=== PATIENT | male | born 1945 | race African-American/Black ===

== ENCOUNTER 2016-04-12 20:50 | Emergency (ER) | payer MEDICARE, MEDICAID ==
[~2016-04-12] VITALS: Ht 180.3 cm; Wt 72.6 kg
[2016-04-12 21:00] VITALS: BP 155/82
[2016-04-12] MEDS ORDERED: ATORVASTATIN CA40 MG ORAL (21:42)
[2016-04-12] MEDS ORDERED: FAMOTIDINE40 MG ORAL (21:42)
[2016-04-12] MEDS ORDERED: ATENOLOL25 MG ORAL (21:43)
[2016-04-12] MEDS ORDERED: DICLOFENAC SODI25 MG ORAL (21:43)
[2016-04-12] MEDS ORDERED: LIDOCAINE700 M1 TP (21:43)
[2016-04-12] MEDS ORDERED: ASPIR 8181 MG ORAL (21:44)
[2016-04-12] MEDS ORDERED: HYDROCHLOROTHIA25 MG ORAL (21:44)
[2016-04-12 22:22] LABS: BASOPHILS % (AUTO) 1.1 % (0.0-2.0); EOSINOPHILS % (AUTO) 3.8 % (0.0-3.0); LYMPHOCYTES % (AUTO) 20.7 % (20.0-45.0); MEAN CORPUSCULAR HEMOGLOBIN 27.8 PG (27.0-31.0); MEAN CORPUSCULAR HGB CONC 31.8 G/DL (32.0-36.0); MEAN CORPUSCULAR VOLUME 87 FL (80-99); MEAN PLATELET VOLUME 11.8 FL (6.5-10.1); MONOCYTES % (AUTO) 9.2 % (1.0-10.0); NEUTROPHILS % (AUTO) 65.2 % (45.0-75.0); PLATELET COUNT 149 K/UL (150-450); RED BLOOD COUNT 4.23 M/UL (4.70-6.10); RED CELL DISTRIBUTION WIDTH 14.1 % (11.6-14.8); WHITE BLOOD COUNT 6.7 K/UL (4.8-10.8)
[2016-04-12 22:28] LABS: INR 1.2 (0.9-1.1); PROTHROMBIN TIME 12.1 SEC (9.30-11.50)
[2016-04-12 22:29] LABS: KETONES,URINE NEGATIVE (NEGATIVE); LEUKOCYTE ESTERASE ,URINE 3+ (NEGATIVE); NITRITE,URINE POSITIVE (NEGATIVE); PH,URINE 6.5 (4.5-8.0); PROTEIN,URINE 3+ (NEGATIVE); UROBILINOGEN,URINE NORMAL MG/DL (0.0-1.0)
[2016-04-12 22:30] VITALS: BP 139/59
[2016-04-12 22:31] LABS: APPEARANCE,URINE CLOUDY
[2016-04-12 22:34] LABS: TROPONIN I < 0.30 ng/mL (<=0.30)
[2016-04-12 22:37] LABS: ALANINE AMINOTRANSFERASE 16 U/L (3-41); ANION GAP 16 (5-15); ASPARTATE AMINO TRANSFERASE 13 U/L (5-40); CALCIUM 9.2 mg/dL (8.6-10.2); CARBON DIOXIDE 24 mEQ/L (20-30); CHLORIDE 97 mEQ/L (98-107); CREATININE 0.8 mg/dL (0.7-1.2); GLOMERULAR FILTRATION RATE > 60 mL/min (>60); HEMOLYSIS 5; LIPASE 14 U/L (< 60); POTASSIUM 3.5 mEQ/L (3.4-4.9); SODIUM 137 mEQ/L (135-145); TOTAL PROTEIN 7.2 g/dL (6.6-8.7)
[2016-04-12 22:38] LABS: AMORPHOUS SEDIMENT,UR MANY /LPF; BACTERIA,URINE MANY /HPF; SQUAMOUS EPITHELIAL CELL,UR OCCASIONAL /LPF (NONE/OCC)
[2016-04-12 22:48] LABS: CKMB 2.1 ng/mL (< 6.7)
[2016-04-12 23:30] VITALS: BP 123/60
[2016-04-12] MEDS ORDERED: Lidocaine 1% MPF 10mg/ml 5ml ONE (23:56)
[2016-04-13] MEDS ORDERED: CIPROFLOXACIN500 M2 ORAL (00:49)
[2016-04-13 01:30] VITALS: BP 126/65
--- NOTE | 2016-04-13 02:53 | Emergency Room Report ---
History of Present Illness General Chief Complaint: Abdominal Pain Source: Patient, EMS Present Illness HPI Patient presents with complaints of malfunctioning of his Mohan catheter Patient is quadriplegic and has a chronic indwelling Mohan catheter Patient has his catheter removed and replaced on a monthly basis However today felt that there was urine coming from around the catheter site the catheter did not appear to be flowing appropriately Patient has some fullness in the suprapubic area denies any fevers denies any chest pain or shortness of breath denies any other abdominal pain And presented for further evaluation Of note the patient had a colonoscopy today as well And has a followup with his urologist on Allergies: Coded Allergies: No Known Allergies (Unverified , 04/12/16) Patient History Past Medical History: see triage record Pertinent Family History: none Reviewed Nursing Documentation: PMH: Agreed, PSxH: Agreed Nursing Documentation-PMH Past Medical History: No History, Except For Hx Cardiac Problems: Yes - AFLUTTER Hx Hypertension: Yes Hx Diabetes: Yes Review of Systems All Other Systems: negative except mentioned in HPI Physical Exam Vital Signs Date Time Temp Pulse Resp B/P Pulse Ox O2 Delivery O2 Flow Rate FiO2 04/12/16 20:50 98.4 106 14 155/82 99 Room Air Sp02 EP Interpretation: reviewed, normal General Appearance: well appearing, no apparent distress Head: normocephalic, atraumatic Eyes: bilateral eye PERRL ENT: hearing grossly normal, normal pharynx Neck: full range of motion, supple Respiratory: lungs clear Cardiovascular #1: regular rate, rhythm Gastrointestinal: non tender, soft Genitourinary: other - Patient has an indwelling catheter, appears to be chronic with erosion of the lower meatus Musculoskeletal: other - Patient is quadriplegic Neurologic: alert, oriented x3, responsive Skin: normal color Medical Decision Making Diagnostic Impression: Primary Impression: Abdominal pain Additional Impressions: uti mohan catheter malfunction ER Course Patient's Mohan catheter was replaced After replacement there was increased urine output in the urinary bag and the patient feels improved Patient's urine shows significant infectious pathology Otherwise CBC and chemistry were at baseline levels I had discussion with [facility] It appears that the patient has had sensitivity to Cipro in the past and therefore this medicine until followup with urology Given the patient's recent colonoscopy as well, x-ray was performed and does not show any obvious free air Labs Test 04/12/16 22:00 White Blood Count 6.7 K/UL (4.8-10.8) Red Blood Count 4.23 M/UL (4.70-6.10) Hemoglobin 11.8 G/DL (14.2-18.0) Hematocrit 37.0 % (42.0-52.0) Mean Corpuscular Volume 87 FL (80-99) Mean Corpuscular Hemoglobin 27.8 PG (27.0-31.0) Mean Corpuscular Hemoglobin Concent 31.8 G/DL (32.0-36.0) Red Cell Distribution Width 14.1 % (11.6-14.8) Platelet Count 149 K/UL (150-450) Mean Platelet Volume 11.8 FL (6.5-10.1) Neutrophils (%) (Auto) 65.2 % (45.0-75.0) Lymphocytes (%) (Auto) 20.7 % (20.0-45.0) Monocytes (%) (Auto) 9.2 % (1.0-10.0) Eosinophils (%) (Auto) 3.8 % (0.0-3.0) Basophils (%) (Auto) 1.1 % (0.0-2.0) Prothrombin Time 12.1 SEC (9.30-11.50) Prothromb Time International Ratio 1.2 (0.9-1.1) Activated Partial Thromboplast Time 37 SEC (23-33) Urine Color Pale yellow Urine Appearance Cloudy Urine pH 6.5 (4.5-8.0) Urine Specific Gibbon 1.010 (1.005-1.035) Urine Protein 3+ (NEGATIVE) Urine Glucose (UA) Negative (NEGATIVE) Urine Ketones Negative (NEGATIVE) Urine Occult Blood 5+ (NEGATIVE) Urine Nitrite Positive (NEGATIVE) Urine Bilirubin Negative (NEGATIVE) Urine Urobilinogen Normal MG/DL (0.0-1.0) Urine Leukocyte Esterase 3+ (NEGATIVE) Urine RBC 10-15 /HPF (0 - 0) Urine WBC 5-10 /HPF (0 - 0) Urine Squamous Epithelial Cells Occasional /LPF Urine Amorphous Sediment Many /LPF (NONE) Urine Bacteria Many /HPF (NONE) Sodium Level 137 mEQ/L (135-145) Potassium Level 3.5 mEQ/L (3.4-4.9) Chloride Level 97 mEQ/L (98-107) Carbon Dioxide Level 24 mEQ/L (20-30) Anion Gap 16 (5-15) Blood Urea Nitrogen 7 mg/dL (7-23) Creatinine 0.8 mg/dL (0.7-1.2) Estimat Glomerular Filtration Rate > 60 mL/min (>60) Glucose Level 115 mg/dL (74-106) Calcium Level 9.2 mg/dL (8.6-10.2) Total Bilirubin 0.4 mg/dL (0.0-1.2) Aspartate Amino Transf (AST/SGOT) 13 U/L (5-40) Alanine Aminotransferase (ALT/SGPT) 16 U/L (3-41) Alkaline Phosphatase 79 U/L (40-129) Total Creatine Kinase 52 U/L (38-174) Creatine Kinase MB 2.1 ng/mL (< 6.7) Creatine Kinase MB Relative Index 4.0 Troponin I < 0.30 ng/mL (<=0.30) Pro-B-Type Natriuretic Peptide 330 pg/mL (0-125) Total Protein 7.2 g/dL (6.6-8.7) Albumin 3.6 g/dL (3.5-5.2) Globulin 3.6 g/dL Albumin/Globulin Ratio 1.0 (1.0-2.7) Lipase 14 U/L (< 60) Rhythm Strip Diag. Results EP Interpretation: yes Rate: 88 Rhythm: NSR, no PVC's, no ectopy Chest X-Ray Diagnostic Results EP Interpretation: Yes Findings: no consolidation, no effusion, no pneumothorax Number of Views: 1 Last Vital Signs Date Time Temp Pulse Resp B/P Pulse Ox O2 Delivery O2 Flow Rate FiO2 04/12/16 22:30 99 18 139/59 98 Room Air 04/12/16 21:00 98.4 Status: improved Disposition: HOME, SELF-CARE Condition: Improved Scripts Ciprofloxacin Hcl* (CIPROFLOXACIN HCL*) 500 Mg Tablet 500 MG ORAL Q12H, #20 TAB 0 Refills Prov: JESÚS GAO D.O. 04/13/16 Referrals: [facility] (PCP) Patient Instructions: Mohan Catheter Care, Adult, Urinary Tract Infection, Easy -to-Read, Abdominal Pain, Adult Additional Instructions: In discussion with [facility] your urine sample has been sensitive to Cipro in the past Therefore this medication was selected The have an appointment on to followup with your urology clinic Please keep this appointment and provided them information regarding your visit to the emergency room today JESÚS GAO D.O. Apr 13, 2016 02:53
[2016-04-13 03:30] VITALS: BP 128/67
--- NOTE | 2016-04-13 10:42 | Diagnostic Imaging Report ---
Indication: Chest Pain Comparison: None A single view chest radiograph was obtained. Findings: Cardiomediastinal appearance is within normal limits for age. Pulmonary vascularity is appropriate. The diaphragmatic contour is smooth and costophrenic angles are sharp. No pleural effusions are identified. The bones are osteopenic. Impression: No acute findings
--- NOTE | 2016-04-13 23:21 | Cardiology Report ---
APPROVED REPORT EKG Measurement Heart [id number] Sinus rhythm with fusion complexes Possible Left atrial enlargement Abnormal ECG
== END 2016-04-13 03:30 | disposition home or self-care (01) ==
LOC: EDBD 20:50 → EMR 21:23
DX: N39.0 Urinary tract infection, site not specified (principal); T83.018A Breakdown (mechanical) of other urinary catheter, initial encounter; I48.92 Unspecified atrial flutter; E11.9 Type 2 diabetes mellitus without complications; I10 Essential (primary) hypertension; Y84.6 Urinary catheterization as the cause of abnormal reaction of the patient, or of later complication, without mention of misadventure at the time of the procedure; Y92.9 Unspecified place or not applicable; Y99.8 Other external cause status
CPT/HCPCS: 36415; 71010; 80053; 81003; 82550; 82553; 83690; 83880; 84484; 85025; 85610; 85730; 87086; 87181; 93005; 96360; 96372; 99283; J0696; J7040